=== PATIENT | female | born 1965 | race Caucasian/White ===

== ENCOUNTER → 2017-07-09 | Outpatient (CLI) | payer BC ==
--- NOTE | 2017-07-09 18:57 | Diagnostic Imaging Report ---
Digital mammogram bilateral screening with tomosynthesis. This study was compared to the prior exams of 05/16/2016, 03/10/2015, and 03/09/2014. At this time, there are no current complaints. The current study was also evaluated with a Computer Aided Detection (CAD) system. FINDINGS: The fibroglandular tissue in both breasts is heterogeneously dense. This does limit the sensitivity of this exam. Overall, there does not appear to have been any significant change when compared to the prior study. No primary or secondary sign of malignancy is noted. 3D tomographic images fail to show any sign of malignancy. IMPRESSION: There is no radiographic evidence for malignancy. ACR BI-RADS Category 2: Benign findings. Result letter will be mailed to the patient. Note: At least 10% of breast cancer is not imaged by mammography. Dictated by: Dictated on workstation # [id number]
== END ==
LOC: RAD 09:51
PROVIDERS: ATTEND Family Medicine
DX: Z12.31 Encounter for screening mammogram for malignant neoplasm of breast (principal)
CPT/HCPCS: 77067

== ENCOUNTER → 2018-07-10 | Outpatient (CLI) | payer BC ==
--- NOTE | 2018-07-10 09:29 | Diagnostic Imaging Report ---
INDICATION: Routine screening. Comparison is made with prior mammogram from 07/09/2017 and 05/16/2016. 2-D and 3-D bilateral screening mammography was performed with CAD. Both breasts remain heterogeneously dense, limiting the sensitivity of mammography. There is an ovoid nodular density in the medial right breast, mid depth, best seen on the cc view. No definite correlate on the MLO view is identified. Additional views are recommended. Left breast is unremarkable. No suspicious calcifications are seen. The axilla are unremarkable. IMPRESSION: BI-RADS category zero Right breast density. Additional views are recommended for further evaluation. ACR BI-RADS Category 0: Incomplete. (Needs additional imaging evaluation). Result letter will be mailed to the patient. Note: At least 10% of breast cancer is not imaged by mammography. Dictated by: Dictated on workstation # [id number]
== END ==
LOC: RAD 07:00
PROVIDERS: ATTEND Family Medicine
DX: Z12.31 Encounter for screening mammogram for malignant neoplasm of breast (principal)
CPT/HCPCS: 77067

== ENCOUNTER → 2018-08-15 | Outpatient (CLI) | payer BC ==
--- NOTE | 2018-08-15 13:01 | Diagnostic Imaging Report ---
Indication: Right breast density. Patient presents for additional views. Correlation is made with prior mammogram from 07/10/2018. 2D and 3D unilateral right diagnostic mammography was performed including rolled CC, spot compression CC and conventional 90 degree lateral views. Right breast is heterogeneously dense, limiting the sensitivity of mammography. There is a circumscribed density in the upper inner right breast approximately 5 cm from the nipple. This has fairly benign features and may represent a cyst. Further evaluation with ultrasound is recommended. No suspicious calcifications are seen. Impression: BI-RADS 0. Circumscribed density upper inner right breast 5 cm from the nipple. Further evaluation with ultrasound is recommended. ACR BI-RADS Category 0: Incomplete. (Needs additional imaging evaluation). Result letter will be mailed to the patient. Note: At least 10% of breast cancer is not imaged by mammography. Dictated by: Dictated on workstation # [id number]
--- NOTE | 2018-08-15 13:07 | Diagnostic Imaging Report ---
Indication: Right breast density. The study is performed for further evaluation. Correlation is made with prior mammogram from earlier same day and screening mammogram from 07/10/2018. Sonographic interrogation of the upper inner right breast was performed. At the 12:30 location, 5 cm from the nipple, there is a circumscribed cyst measuring 8 mm x 6 mm x 8 mm. This appears to be fairly simple. There is posterior acoustic enhancement. No vascularity is seen. Impression: BI-RADS 2 Simple cyst at the 12:30 location of the right breast, 5 cm from the nipple, correlating with the mammographic abnormality. No solid lesions are seen. The patient may return to routine annual screening Patient tolerated the procedure and there were no immediate postprocedure complications. ACR BI-RADS Category 2: Benign findings. Result letter will be mailed to the patient. Note: At least 10% of breast cancer is not imaged by mammography. Dictated by: Dictated on workstation # [id number]
== END ==
LOC: RAD 08:51
PROVIDERS: ATTEND Family Medicine
DX: N60.01 Solitary cyst of right breast (principal)

== ENCOUNTER → 2018-10-14 | Outpatient (CLI) | payer BC ==
--- NOTE | 2018-10-14 14:46 | Diagnostic Imaging Report ---
EXAMINATION: Pelvic ultrasound. INDICATION: Enlarged uterus. FINDINGS: There are no prior studies available for comparison. The patient did decline the transvaginal probe. The uterus has a bulky appearance and measures 6.5 x 5.0 x 5.1 cm. Furthermore along the posterior aspect of the lower uterus, there is a 3.2 x 2.9 x 2.9 cm area of slightly altered echogenicity. I suspect that this is related to a fibroid. There is no other clear evidence for a fibroid. The endometrial lining is thickened measuring 10 mm (normal 5 mm or less). This finding is nonspecific, but abnormal if the patient is postmenopausal (normal postmenopausal endometrial thickening 4-5 mm or less). Both ovaries are identified. There is good blood flow to the ovaries and there is no sign of torsion. There is a 2.0 x 1.4 x 1.2 cm cyst associated with the right ovary. This cyst has a generally benign appearance. The left ovary is unremarkable. There is no solid pelvic mass or free fluid collection evident. IMPRESSION: 1. The uterus has a bulky appearance and there appears to be a roughly 3 cm fibroid along the posterior aspect of the lower uterine segment. 2. The endometrial lining of the uterus is thickened if the patient is indeed postmenopausal. Clinical follow-up is recommended. 3. There is a small cyst associated with the right ovary. There is no acute pelvic abnormality noted otherwise. Dictated by: Dictated on workstation # [id number]
== END ==
LOC: RAD 11:52
PROVIDERS: ATTEND Nurse Practitioner
DX: N85.2 Hypertrophy of uterus (principal); R87.618 Other abnormal cytological findings on specimens from cervix uteri
CPT/HCPCS: 76830; 76856

== ENCOUNTER → 2019-02-13 | Outpatient (CLI) | payer BC ==
--- NOTE | 2019-02-13 15:28 | Diagnostic Imaging Report ---
PROCEDURE: US PELVIC (NON OB) TECHNIQUE: Multiple real-time grayscale images were obtained over the pelvis in various projections transabdominally. INDICATION: Irregular menses. FINDINGS: Uterus measures 9.4 x 5.2 x 3.9 cm. Previously noted fibroid is again noted approximately 3 cm in size. Endometrial evaluation demonstrates endometrial thickening of approximately 10 mm. Transvaginal study was not performed due to patient refusal. The ovaries cannot be visualized. No adnexal mass or free fluid is seen. IMPRESSION: Stable transabdominal pelvic ultrasound when compared to exam from 10/14/2018. Patient refused transvaginal study. Dictated by: Dictated on workstation # [id number]
== END ==
LOC: RAD 11:41
PROVIDERS: ATTEND Nurse Practitioner
DX: N92.6 Irregular menstruation, unspecified (principal); N93.8 Other specified abnormal uterine and vaginal bleeding
CPT/HCPCS: 76856

== ENCOUNTER → 2019-09-08 | Outpatient (CLI) | payer BC ==
--- NOTE | 2019-09-08 10:26 | Diagnostic Imaging Report ---
INDICATION: Routine screening. COMPARISON: 07/10/2018 and 07/09/2017. TECHNIQUE: 2D and 3D bilateral screening mammography was performed with CAD. FINDINGS: Both breasts are heterogeneously dense, limiting the sensitivity of mammography. No dominant mass or malignant appearing microcalcifications are seen. There are benign calcifications bilaterally. The axillae are unremarkable. IMPRESSION: No mammographic features suspicious for malignancy are identified. ACR BI-RADS Category 2: Benign findings. Result letter will be mailed to the patient. Note: At least 10% of breast cancer is not imaged by mammography. Dictated by: Dictated on workstation # [id number]
--- NOTE | 2019-09-08 10:51 | Diagnostic Imaging Report ---
EXAMINATION: Magnetic resonance imaging of the right shoulder without contrast. DATE: September 08, 2019. COMPARISON: None. HISTORY: 54-year-old female, fall in May 2019. Right shoulder pain. TECHNIQUE: Magnetic Resonance Imaging sequences were performed of the shoulder without contrast. FINDINGS: ROTATOR CUFF, LIGAMENTS, TENDONS, AND MUSCLES: There is a 13 mm wide near full-thickness or full-thickness tear of the supraspinatus tendon at its humeral attachment site without tendon retraction. This is best illustrated on sagittal T2 fat saturation sequence image 4 and coronal T2 fat saturation sequence image 14. The infraspinatus and teres minor tendons are intact. The scapularis tendon is intact. There is normal rotator cuff muscle bulk and signal. LONG HEAD OF BICEPS: The biceps labral attachment and long head of the biceps tendon is intact. The long head of the biceps tendon is normally positioned within the bicipital groove. GLENOHUMERAL JOINT: The humeral head is well positioned relative to the glenoid. The labrum is grossly intact. There is no identified paralabral cyst. The articular cartilage is grossly intact. There is no joint effusion. ACROMIOCLAVICULAR JOINT: The acromioclavicular joint is normally aligned. The coracoclavicular and coracoacromial ligaments are intact. There are no degenerative changes of the acromioclavicular joint. BONE: The bones all have normal configuration. The bone marrow signal is within normal limits. Specifically, negative for fracture, osteomyelitis, osteonecrosis, or marrow replacing process. BURSAE AND SOFT TISSUES: There is minimal fluid within the subacromial subdeltoid bursa which is likely within normal limits for detection on MRI. Additional soft tissue evaluation is unremarkable. IMPRESSION: 1. 13 mm wide full-thickness tear of the supraspinatus tendon at its humeral attachment site without tendon retraction. No fatty muscle atrophy. 2. Intact acromioclavicular joint. 3. Intact labrum and unremarkable glenohumeral joint assessment. 4. No acute fracture or bone contusion. Dictated by: Dictated on workstation # [id number]
== END ==
LOC: RAD 09:24
PROVIDERS: ATTEND Family Medicine
DX: Z12.31 Encounter for screening mammogram for malignant neoplasm of breast (principal); S46.011A Strain of muscle(s) and tendon(s) of the rotator cuff of right shoulder, initial encounter
CPT/HCPCS: 73221; 77067

== ENCOUNTER → 2020-09-13 | Outpatient (CLI) | payer BC ==
--- NOTE | 2020-09-13 20:52 | Diagnostic Imaging Report ---
EXAM: Digital mammogram bilateral screening COMPARISON: This study was compared to the prior exams of 09/08/2019, 07/10/2018 and 07/09/2017. There are no current complaints. FINDINGS: The fibroglandular tissue in both breasts is heterogeneously dense. This does limit the sensitivity of this exam. In the mid medial aspect of the right breast approximately 5 cm deep to the nipple, there is a 1 cm oval asymmetry. The tomographic images suggest this is a benign process. Even so, I would recommend that ultrasound be performed to better characterize this finding. The overall appearance the breasts is not changed significantly otherwise. There is no primary or secondary sign of malignancy noted. IMPRESSION: Ultrasound would be recommended for further evaluation of the benign-appearing nodular asymmetry in the midportion of the right breast. ACR BI-RADS Category 0: Incomplete. (Needs additional imaging evaluation). Result letter will be mailed to the patient. Note: At least 10% of breast cancer is not imaged by mammography. Dictated by: Dictated on workstation # [id number]
== END ==
LOC: RAD 15:45
PROVIDERS: ATTEND Family Medicine
DX: Z12.31 Encounter for screening mammogram for malignant neoplasm of breast (principal); N64.89 Other specified disorders of breast
CPT/HCPCS: 77063; 77067

== ENCOUNTER → 2020-09-29 | Outpatient (CLI) | payer BC ==
--- NOTE | 2020-09-29 14:27 | Diagnostic Imaging Report ---
PROCEDURE: US PELVIC (NON OB) TECHNIQUE: Multiple real-time grayscale images were obtained over the pelvis in various projections transabdominally. INDICATION: Dysfunctional uterine bleeding and enlarged uterus. Uterus is anteverted measuring 10.4 x 3.9 x 4.3 cm. There is a fibroid in the posterior uterus measuring 3.5 x 3.6 x 2.6 cm. Endometrium is 12 mm in thickness. The right and left ovaries were not visualized. No adnexal mass or free fluid is detected. IMPRESSION: Uterine fibroid. In addition, endometrium is abnormally thickened at 12 mm for a postmenopausal patient. Dictated by: Dictated on workstation # [id number]
== END ==
LOC: RAD 12:43
PROVIDERS: ATTEND Nurse Practitioner
DX: D25.9 Leiomyoma of uterus, unspecified (principal)
CPT/HCPCS: 76856

== ENCOUNTER → 2020-09-29 | Outpatient (CLI) | payer BC ==
--- NOTE | 2020-09-29 14:09 | Diagnostic Imaging Report ---
INDICATION: Right breast density. This study is performed for further evaluation. COMPARISON: Correlation is made with the screening mammogram from 09/13/2020. FINDINGS: Sonographic interrogation of the inner right breast was performed. There is a circumscribed hypoechoic mass at the 2 o'clock location of the right breast measuring 1.1 x 0.9 x 0.6 cm. No internal vascularity is seen. There does appear to be some internal debris. Features are most consistent with a complex cyst. No other masses are identified. IMPRESSION: Complex cyst at the 2 o'clock location of the right breast corresponding to the mammographic abnormality. The patient may return to routine annual screening mammography. ACR BI-RADS Category 2: Benign findings. Dictated by: Dictated on workstation # [id number]
== END ==
LOC: RAD 12:46
PROVIDERS: ATTEND Family Medicine
DX: N60.01 Solitary cyst of right breast (principal)

== ENCOUNTER → 2021-09-16 | Outpatient (CLI) | payer BC ==
--- NOTE | 2021-09-16 12:09 | Diagnostic Imaging Report ---
Indication: Routine screening. Comparison is made with prior mammogram from 09/13/2020 and 09/08/2019. 2-D and 3-D bilateral screening mammography was performed with CAD. Both breasts are heterogeneously dense, limiting the sensitivity of mammography. Previously noted circumscribed density in the inner right breast is again noted appears slightly smaller on today's study. This was shown to represent a complex cyst on previous ultrasound. No new mass or malignant-appearing microcalcifications are seen. There are occasional benign calcifications present. Axillae are unremarkable. IMPRESSION: BI-RADS Category 2 No mammographic features suspicious for malignancy are identified. Dictated by: Dictated on workstation # [id number]
== END ==
LOC: RAD 10:30
PROVIDERS: ATTEND Family Medicine
DX: Z12.31 Encounter for screening mammogram for malignant neoplasm of breast (principal)
CPT/HCPCS: 77063; 77067

== ENCOUNTER → 2022-09-26 | Outpatient (CLI) | payer BC ==
--- NOTE | 2022-09-26 16:21 | Diagnostic Imaging Report ---
INDICATION: Routine screening. COMPARISON: 09/16/2021 and 09/13/2020. TECHNIQUE: 2D and 3D bilateral screening mammography was performed with CAD. FINDINGS: Both breasts are heterogeneously dense, limiting the sensitivity of mammography. The parenchymal pattern is stable. No dominant mass or malignant-appearing microcalcifications are seen. There are occasional benign calcifications noted. The axillae are unremarkable. IMPRESSION: No mammographic features suspicious for malignancy are identified. ACR BI-RADS Category 2: Benign findings. Result letter will be mailed to the patient. Note: At least 10% of breast cancer is not imaged by mammography. Dictated by: Dictated on workstation # [id number]
== END ==
LOC: RAD 10:53
PROVIDERS: ATTEND Family Medicine
DX: Z12.31 Encounter for screening mammogram for malignant neoplasm of breast (principal)
CPT/HCPCS: 77063; 77067

== ENCOUNTER → 2023-03-13 | Outpatient (CLI) | payer BC ==
--- NOTE | 2023-03-13 16:28 | Diagnostic Imaging Report ---
EXAMINATION: Left foot radiographs, 3 views. COMPARISON: None. HISTORY: 57-year-old female, left foot pain. FINDINGS: There is degenerative type calcaneal enthesopathy. There is no acute fracture. There is no cortical or aggressive bone destruction. There is mild osteoarthritis of the first metatarsophalangeal joint. IMPRESSION: 1. No acute bony abnormality of the left foot. 2. Mild osteoarthritis of the first metatarsophalangeal joint. 3. Degenerative type calcaneal enthesopathy. Dictated by: Dictated on workstation # [id number]
== END ==
LOC: RAD 14:41
PROVIDERS: ATTEND Family Medicine
DX: M19.072 Primary osteoarthritis, left ankle and foot (principal)
CPT/HCPCS: 73630

== ENCOUNTER → 2023-10-05 | Outpatient (CLI) | payer BC ==
--- NOTE | 2023-10-07 18:44 | Diagnostic Imaging Report ---
INDICATION: Screening. EXAMINATION: 3D bilateral screening mammograms with CAD. The current study was also evaluated with a Computer Aided Detection (CAD) system. COMPARISON: This study was compared to the prior exams of 09/26/2022, 09/16/2021 and 09/13/2020. FINDINGS: The breasts are heterogenously dense, which may obscure small masses. When compared to the previous study, there does not appear to have been any significant change. There is no primary or secondary sign of malignancy noted. IMPRESSION: There is no evidence for malignancy. ACR BI-RADS Category 1: Negative. Result letter will be mailed to the patient. Note: At least 10% of breast cancer is not imaged by mammography. Dictated by: Dictated on workstation # [id number]
== END ==
LOC: RAD 11:07
PROVIDERS: ATTEND Family Medicine
DX: Z12.31 Encounter for screening mammogram for malignant neoplasm of breast (principal)
CPT/HCPCS: 77063; 77067